=== PATIENT | female | born 1950 | race Caucasian/White ===

== ENCOUNTER 2018-02-04 11:59 | Outpatient (CLI) | payer MEDICARE, OTHER ==
--- NOTE | 2018-02-04 15:41 | MRI ---
MRI BRAIN WITH AND WITHOUT CONTRAST: HISTORY: 67-year-old female with G31.84, mild cognitive impairment. Memory loss. TECHNIQUE: Multiple sequences obtained in axial, sagittal, and coronal planes; pre and post IV injection of gado linium-based contrast agent: 9 mL MultiHance. FINDINGS: The ventricles are normal in size and configuration. There is no major intraaxial signal abnormality , restricted diffusion, abnormal intraaxial enhancement, mass, midline shift or any other mass effect , recent intraaxial hemorrhage, or extraaxial fluid collection. Incidentally, there is hyperostosis f rontalis interna. IMPRESSION: Normal. jn[] POS: [facility]
== END 2018-02-04 12:00 | disposition home or self-care (01) ==
LOC: SCSMRI 11:59
PROVIDERS: ATTEND Psychiatry & Neurology Neurology
DX: G31.84 Mild cognitive impairment of uncertain or unknown etiology (principal)
CPT/HCPCS: 70553; 82565

== ENCOUNTER 2021-11-14 10:00 | Outpatient (CLI) | payer MEDICARE, OTHER | END 2021-11-14 10:01 | disposition home or self-care (01) | LOC: SCSMRI 10:00 | PROVIDERS: ATTEND Orthopaedic Surgery | DX: M17.11 Unilateral primary osteoarthritis, right knee (principal); S83.271A Complex tear of lateral meniscus, current injury, right knee, initial encounter; M71.21 Synovial cyst of popliteal space [Baker], right knee ==

== ENCOUNTER 2021-12-08 10:11 | Outpatient (CLI) | payer MEDICARE, OTHER ==
[2021-12-08 10:59] LABS: #Basophils 0.1 10x3/uL (0.0-0.2); #Eosinphils 0.2 10x3/uL (0.0-0.5); #Monocytes 0.6 10x3/uL (0.0-1.1); #Neutrophils 5.7 10x3/uL (1.5-8.4); %Basophils 0.6 % (0.0-2.0); %Eosinophils 1.7 % (0.0-6.0); %Lymphocytes 36.6 % (18.0-47.0); %Monocytes 5.6 % (0.0-10.0); %Neutrophils 54.9 % (40.0-75.0); Mean Corpuscular HGB CONC 33.6 g/dL (32.0-36.0); Mean Corpuscular Hemoglobin 33.8 pg (27.0-33.0); Mean Corpuscular Volume 100.5 fl (81.6-98.3); Mean Platelet Volume 10.4 fl (7.4-10.4); Platelet Count 187 10x3/uL (150-450); RBC Distribution Width 14.5 % (11.5-14.5); Red Blood Cell (RBC) Count 3.85 10x6/uL (3.90-5.03); White Blood Cell (WBC) Count 10.3 10x3/uL (3.5-10.5)
[2021-12-08 11:10] LABS: Prothrombin Time 10.6 sec (9.5-12.1)
[2021-12-08 11:25] LABS: Anion Gap 17 mmol/L (10-20); Calc. Creatinine Clearance 0 mL/min (70-130); Calcium 10.9 mg/dL (7.8-10.44); Carbon Dioxide 28 mmol/L (23-31); Chloride 100 mmol/L (98-107); Estimated GFR 27; Glucose 165 mg/dL (80-115); Potassium 4.3 mmol/L (3.5-5.1); Sodium 141 mmol/L (136-145)
[2021-12-08 12:07] LABS: BUN (Urea Nitrogen) 29 mg/dL (9.8-20.1)
== END 2021-12-08 10:12 | disposition home or self-care (01) ==
LOC: LABBT 10:11
PROVIDERS: ATTEND Orthopaedic Surgery
DX: Z01.818 Encounter for other preprocedural examination (principal); M17.11 Unilateral primary osteoarthritis, right knee
CPT/HCPCS: 80048; 85025; 85610; 87081; 93005; 93010

== ENCOUNTER 2021-12-13 05:37 | Inpatient (IN) | payer MEDICARE, OTHER ==
[2021-12-12 13:01] VITALS: BMI 36.1
[2021-12-13] MEDS ORDERED: Sodium Chloride 0.9% 100 ML ONE ×2 (05:55→06:56)
[2021-12-13] MEDS ORDERED: Tranexamic Acid 1,000 MG/10 ML VIAL ONE (05:55)
[2021-12-13] MEDS ORDERED: Vancomycin (BATCH) 1.5 GRAM/300 ML BAG ONE (05:55)
[2021-12-13] MEDS ORDERED: fentaNYL Citrate/PF 100 MCG/2 ML SYRINGE ONE (05:59)
[2021-12-13] MEDS ORDERED: Bupivacaine 0.25% HCL 30 ML VIAL ONE (06:21)
[2021-12-13] MEDS ORDERED: EPINEPHrine 1 MG/ML AMP ONE (06:21)
[2021-12-13] MEDS ORDERED: Midazolam HCl 2 mg/2 ml Vial ONE (06:36)
[2021-12-13 06:50] LABS: SARS-CoV-2 NAA Rapid Test Not Detected (NotDetected)
[2021-12-13] MEDS ORDERED: Ropivacaine 0.5% HCl/PF (150 MG/30 ML VIAL) ONE ×2 (06:54→08:34)
[2021-12-13] MEDS ORDERED: PROPOFOL 200 MG/20 ML VIAL ONE (06:54)
[2021-12-13] MEDS ORDERED: Ondansetron PF 4 MG/2 ML Vial ONE (06:54)
[2021-12-13] MEDS ORDERED: CEFAZOLIN 2 GM VIAL ONE (06:56)
[2021-12-13] MEDS ORDERED: Ropivacaine 0.2% 550 ML 550 ML NERVE BLCK SCH (07:45)
[2021-12-13] MEDS ORDERED: traMADol HCl 50 MG TAB PO PRN ×2 (07:45)
[2021-12-13] MEDS ORDERED: Ondansetron PF 4 MG/2 ML Vial IVP PRN ×2 (07:45→08:55)
[2021-12-13] MEDS ORDERED: Fentanyl 100 MCG/2 ML VIAL SLOW IVP PRN (07:45)
[2021-12-13] MEDS ORDERED: HYDROcodone/Acetaminophen 10/325 mg Tablet PO PRN (07:45)
[2021-12-13] MEDS ORDERED: Promethazine HCl 25 MG/ML VIAL IM PRN ×3 (07:45→09:08)
[2021-12-13] MEDS ORDERED: Zolpidem Tartrate 5 MG TAB PO PRN ×2 (07:45→08:55)
[2021-12-13] MEDS ORDERED: Acetaminophen 325 MG TAB PO PRN (08:55)
[2021-12-13] MEDS ORDERED: diphenhydrAMINE 25 MG CAP PO PRN (08:55)
[2021-12-13] MEDS ORDERED: TRULICITY 3 MG SC SCH (09:00)
[2021-12-13] MEDS ORDERED: Promethazine HCl 25 MG/ML VIAL IVPB PRN (09:08)
[2021-12-13] MEDS ORDERED: Ondansetron HCl/PF 4 MG/2 ML Vial IVP PRN (09:08)
[2021-12-13] MEDS: Ketorolac Tromethamine 30 MG/ML VIAL IVP SCH ×3 (10:29→23:22)
[2021-12-13] MEDS: HYDROcodone/Acetaminophen 10/325 mg Tablet PO PRN ×2 (10:30→15:17)
[2021-12-13] MEDS: Aspirin 81 mg Enteric Coated Tablet PO SCH ×2 (10:32→21:03)
[2021-12-13] MEDS: Sodium Chloride 0.9% 1,000 ML IV SCH ×2 (10:52→17:56)
[2021-12-13] MEDS ORDERED: Melatonin 3 MG TAB PO PRN (12:28)
[2021-12-13 13:03] LABS: #Eosinphils 0.2 thou/uL (0.0-0.7); #Lymphocytes 2.3 thou/uL (1.20-3.40); #Monocytes 0.7 thou/uL (0.11-0.59); #Neutrophils 7.9 thou/uL (1.40-6.50); %Basophils 0.1 % (0.0-1.0); %Eosinophils 1.6 % (0.0-10.0); %Lymphocytes 20.9 % (21.0-51.0); %Monocytes 5.9 % (0.0-10.0); %Neutrophils 71.4 % (42.0-75.0); Hemoglobin 12.3 g/dL (12.0-16.0); Mean Corpuscular HGB CONC 32.6 g/dL (32.0-36.0); Mean Corpuscular Hemoglobin 33.7 pg (27.0-31.0); Mean Platelet Volume 8.2 fL (7.4-10.4); Platelet Count 198 thou/uL (130-400); Red Blood Cell (RBC) Count 3.64 mill/uL (4.20-5.40); White Blood Cell (WBC) Count 11.1 thou/uL (4.8-10.8)
[2021-12-13 13:27] LABS: Phosphorus 2.9 mg/dL (2.3-4.7)
[2021-12-13 13:30] LABS: ALT (SGPT) 10 U/L (8-55); AST (SGOT) 9 U/L (5-34); Albumin 3.6 g/dL (3.4-4.8); Alkaline Phosphatase 59 U/L (40-110); Anion Gap 11 mmol/L (10-20); BUN (Urea Nitrogen) 19 mg/dL (9.8-20.1); Bilirubin, Total 0.3 mg/dL (0.2-1.2); Calc. Creatinine Clearance 54 mL/min (70-130); Calcium 8.6 mg/dL (7.8-10.44); Carbon Dioxide 30 mmol/L (23-31); Chloride 107 mmol/L (98-107); Estimated GFR 33; Globulin 2.2 g/dL (2.4-3.5); Glucose 159 mg/dL (80-115); Magnesium 1.3 mg/dL (1.6-2.6); Potassium 4.8 mmol/L (3.5-5.1); Protein, Total 5.8 g/dL (5.8-8.1); Sodium 143 mmol/L (136-145)
[2021-12-13 13:34] LABS: PTT 26.3 sec (22.9-36.1); Prothrombin Time 13.6 sec (12.0-14.7)
[2021-12-13] MEDS ORDERED: Insulin Regular 300 UNITS/3 ML VIAL SC PRN ×2 (14:20)
[2021-12-13] MEDS ORDERED: Dextrose 50% Abboject 50 ML SYRINGE SLOW IVP PRN (14:20)
[2021-12-13] MEDS ORDERED: Dextrose 5% in Water 1,000 ML IV PRN (14:20)
[2021-12-13] MEDS ORDERED: Electrolyte Replacement Protocol 1 EACH FS SCH (14:30)
[2021-12-13] MEDS ORDERED: Magnesium Sulfate In Water 4 GM in Premix Bag 1 BAG IVPB SCH (15:00)
[2021-12-13] MEDS: CEFAZOLIN 2 GM in Sodium Chloride 0.9% 100 ML IVPB SCH ×2 (15:17→23:22)
[2021-12-13] MEDS ORDERED: Oxybutynin ER 5 MG TAB PO SCH (21:00)
[2021-12-13] MEDS: Divalproex Sodium DR 500 MG TAB PO SCH (21:01)
[2021-12-13] MEDS: Atorvastatin Calcium 10 MG TAB PO SCH (21:01)
[2021-12-13] MEDS: cycloSPORINE 0.05% Ophthalmic Droperette EA EYE SCH (21:03)
[2021-12-14] MEDS: Sodium Chloride 0.9% 1,000 ML IV SCH ×2 (05:49→16:27)
[2021-12-14] MEDS: Ketorolac Tromethamine 30 MG/ML VIAL IVP SCH ×3 (05:52→17:24)
[2021-12-14 05:57] LABS: Hemoglobin 10.7 g/dL (12.0-16.0); Mean Corpuscular HGB CONC 33.2 g/dL (32.0-36.0); Mean Corpuscular Hemoglobin 34.9 pg (27.0-31.0); Mean Platelet Volume 7.4 fL (7.4-10.4); Platelet Count 164 thou/uL (130-400); RBC Distribution Width 14.1 % (11.5-14.5); Red Blood Cell (RBC) Count 3.08 mill/uL (4.20-5.40); White Blood Cell (WBC) Count 7.6 thou/uL (4.8-10.8)
[2021-12-14 05:59] LABS: #Eosinphils 0.1 thou/uL (0.0-0.7); #Lymphocytes 2.4 thou/uL (1.20-3.40); #Monocytes 0.6 thou/uL (0.11-0.59); #Neutrophils 4.6 thou/uL (1.40-6.50); %Basophils 0.2 % (0.0-1.0); %Eosinophils 0.9 % (0.0-10.0); %Neutrophils 59.9 % (42.0-75.0)
[2021-12-14 06:58] LABS: Anion Gap 14 mmol/L (10-20); BUN (Urea Nitrogen) 22 mg/dL (9.8-20.1); Calc. Creatinine Clearance 46 mL/min (70-130); Calcium 8.1 mg/dL (7.8-10.44); Carbon Dioxide 24 mmol/L (23-31); Chloride 104 mmol/L (98-107); Estimated GFR 27; Glucose 194 mg/dL (80-115); Potassium 3.9 mmol/L (3.5-5.1); Sodium 138 mmol/L (136-145)
[2021-12-14 07:56] LABS: Magnesium 2.3 mg/dL (1.6-2.6)
[2021-12-14] MEDS: Senokot S 8.6-50 MG TAB PO SCH ×2 (07:56→22:14)
[2021-12-14] MEDS: OLANZapine 5 MG TAB PO SCH (07:57)
[2021-12-14] MEDS: Escitalopram Oxalate 20 mg Tablet PO SCH (07:57)
[2021-12-14] MEDS: Multivitamin W/ Minerals 1 TAB PO SCH (07:57)
[2021-12-14] MEDS: Divalproex Sodium DR 500 MG TAB PO SCH ×2 (07:57→22:20)
[2021-12-14] MEDS: Calcium Carbonate 600 MG + Vit D TAB PO SCH ×2 (07:57→17:24)
[2021-12-14] MEDS: Ferrous Gluconate 324 MG TAB PO SCH ×2 (07:57→17:24)
[2021-12-14] MEDS: Aspirin 81 mg Enteric Coated Tablet PO SCH ×2 (07:58→22:14)
[2021-12-14] MEDS: Cyanocobalamin (Vitamin B-12) 1,000 MCG TAB PO SCH (07:58)
[2021-12-14] MEDS: HYDROcodone/Acetaminophen 10/325 mg Tablet PO PRN ×2 (07:58→11:54)
[2021-12-14] MEDS: buPROPion HCl 100 MG TAB PO SCH (07:58)
[2021-12-14] MEDS: Folic Acid 1 MG TAB PO SCH (07:58)
[2021-12-14] MEDS ORDERED: Losartan 25 MG TAB PO SCH (09:00)
[2021-12-14] MEDS: cycloSPORINE 0.05% Ophthalmic Droperette EA EYE SCH ×2 (11:56→22:15)
[2021-12-14] MEDS ORDERED: Insulin Regular 300 UNITS/3 ML VIAL SC PRN (19:30)
[2021-12-14] MEDS: Atorvastatin Calcium 10 MG TAB PO SCH (22:14)
[2021-12-15] MEDS: Ketorolac Tromethamine 30 MG/ML VIAL IVP SCH ×2 (00:18→05:51)
[2021-12-15] MEDS: Sodium Chloride 0.9% 1,000 ML IV SCH ×2 (02:09→12:38)
[2021-12-15 06:05] LABS: #Eosinphils 0.2 thou/uL (0.0-0.7); #Lymphocytes 4.7 thou/uL (1.20-3.40); #Monocytes 0.7 thou/uL (0.11-0.59); #Neutrophils 4.5 thou/uL (1.40-6.50); %Basophils 0.1 % (0.0-1.0); %Eosinophils 1.5 % (0.0-10.0); %Lymphocytes 46.5 % (21.0-51.0); %Monocytes 7.1 % (0.0-10.0); %Neutrophils 44.8 % (42.0-75.0); Hemoglobin 9.7 g/dL (12.0-16.0); Mean Corpuscular HGB CONC 33.4 g/dL (32.0-36.0); Mean Corpuscular Hemoglobin 34.7 pg (27.0-31.0); Mean Platelet Volume 7.8 fL (7.4-10.4); Platelet Count 181 thou/uL (130-400); RBC Distribution Width 14.1 % (11.5-14.5)
[2021-12-15 06:11] LABS: Hemoglobin 9.8 g/dL (12.0-16.0); Mean Corpuscular HGB CONC 33.6 g/dL (32.0-36.0); Mean Corpuscular Hemoglobin 35.1 pg (27.0-31.0); Mean Platelet Volume 7.9 fL (7.4-10.4); Platelet Count 186 thou/uL (130-400); RBC Distribution Width 14.1 % (11.5-14.5); Red Blood Cell (RBC) Count 2.81 mill/uL (4.20-5.40); White Blood Cell (WBC) Count 9.6 thou/uL (4.8-10.8)
[2021-12-15 06:33] LABS: Anion Gap 11 mmol/L (10-20); BUN (Urea Nitrogen) 25 mg/dL (9.8-20.1); Calc. Creatinine Clearance 50 mL/min (70-130); Calcium 8.4 mg/dL (7.8-10.44); Carbon Dioxide 27 mmol/L (23-31); Chloride 101 mmol/L (98-107); Estimated GFR 30; Glucose 213 mg/dL (80-115); Potassium 3.8 mmol/L (3.5-5.1); Sodium 135 mmol/L (136-145)
[2021-12-15] MEDS: Ferrous Gluconate 324 MG TAB PO SCH ×2 (08:43→16:56)
[2021-12-15] MEDS: OLANZapine 5 MG TAB PO SCH (08:44)
[2021-12-15] MEDS: buPROPion HCl 100 MG TAB PO SCH (08:45)
[2021-12-15] MEDS: Escitalopram Oxalate 20 mg Tablet PO SCH (08:45)
[2021-12-15] MEDS: HYDROcodone/Acetaminophen 10/325 mg Tablet PO PRN ×2 (08:45→14:11)
[2021-12-15] MEDS: Multivitamin W/ Minerals 1 TAB PO SCH (08:46)
[2021-12-15] MEDS: Folic Acid 1 MG TAB PO SCH (08:46)
[2021-12-15] MEDS: Cyanocobalamin (Vitamin B-12) 1,000 MCG TAB PO SCH (08:46)
[2021-12-15] MEDS: Calcium Carbonate 600 MG + Vit D TAB PO SCH ×2 (08:47→16:56)
[2021-12-15] MEDS: Senokot S 8.6-50 MG TAB PO SCH (08:47)
[2021-12-15] MEDS: Aspirin 81 mg Enteric Coated Tablet PO SCH (08:48)
[2021-12-15] MEDS: Divalproex Sodium DR 500 MG TAB PO SCH (08:53)
[2021-12-15] MEDS: cycloSPORINE 0.05% Ophthalmic Droperette EA EYE SCH (08:55)
[2021-12-15] MEDS ORDERED: Ciprofloxacin 500 MG TAB PO SCH ×2 (20:00→21:00)
[2021-12-15 20:57] VITALS: BP 133/75; TEMP 98.5
[2021-12-16] MEDS ORDERED: Saccharomyces boulardii 250 MG CAP PO SCH (12:00)
[2021-12-16] MEDS ORDERED: OLANZapine 5 MG TAB PO SCH (21:00)
== END 2021-12-15 21:20 | DRG 470 ==
LOC: SDC 05:37 → SJJU 10:21 → OBSVTOIN 12-14 07:22
PROVIDERS: ADMIT Orthopaedic Surgery; ATTEND Orthopaedic Surgery
PROC: 0SRC0J9 Replacement of Right Knee Joint with Synthetic Substitute, Cemented, Open Approach (ICD-10-PCS; principal; 2021-12-13)
DX: M17.11 Unilateral primary osteoarthritis, right knee (principal); M93.851 Other specified osteochondropathies, right thigh; E78.5 Hyperlipidemia, unspecified; I12.9 Hypertensive chronic kidney disease with stage 1 through stage 4 chronic kidney disease, or unspecified chronic kidney disease; Z20.822 Contact with and (suspected) exposure to COVID-19; F41.9 Anxiety disorder, unspecified; N18.30 Chronic kidney disease, stage 3 unspecified; E11.22 Type 2 diabetes mellitus with diabetic chronic kidney disease; F31.9 Bipolar disorder, unspecified; Z79.899 Other long term (current) drug therapy; Z90.710 Acquired absence of both cervix and uterus; Z90.722 Acquired absence of ovaries, bilateral
CPT/HCPCS: 36415; 36416; 80048; 80053; 83735; 84100; 85025; 85027; 85610; 85730; 96374; 96375; 96376; A4306; C1713; C1776; G0378; J0171; J1815; J1885; J2250; J2405; J2704; J2795; J3370; J3475; J3490; S0020; U0002

== ENCOUNTER 2022-11-04 09:25 | Inpatient (IN) | payer MEDICARE, OTHER ==
[2022-11-04 10:13] LABS: #Basophils 0.1 thou/uL (0.0-0.2); #Eosinphils 0.1 thou/uL (0.0-0.7); #Monocytes 0.5 thou/uL (0.11-0.59); #Neutrophils 4.9 thou/uL (1.40-6.50); %Basophils 0.4 % (0.0-1.0); %Eosinophils 0.6 % (0.0-10.0); %Monocytes 3.9 % (0.0-10.0); %Neutrophils 35.9 % (42.0-75.0); Hematocrit 38.5 % (36.0-47.0); Hemoglobin 13.3 g/dL (12.0-16.0); Mean Corpuscular HGB CONC 34.5 g/dL (32.0-36.0); Mean Corpuscular Hemoglobin 32.4 pg (27.0-31.0); Mean Corpuscular Volume 93.7 fl (78.0-98.0); Mean Platelet Volume 11.1 fL (7.4-10.4); Platelet Count 345 10x3/uL (130-400); RBC Distribution Width 12.8 % (11.5-14.5); Red Blood Cell (RBC) Count 4.11 mill/uL (4.20-5.40); White Blood Cell (WBC) Count 13.7 10x3/uL (4.8-10.8)
[2022-11-04 10:33] LABS: ALT (SGPT) 15 U/L (8-55); AST (SGOT) 18 U/L (5-34); Albumin 4.3 g/dL (3.4-4.8); Alkaline Phosphatase 101 U/L (40-110); Anion Gap 19 mmol/L (10-20); BUN (Urea Nitrogen) 18 mg/dL (9.8-20.1); Bilirubin, Total 0.8 mg/dL (0.2-1.2); Calc. Creatinine Clearance 0 mL/min (70-130); Calcium 11.1 mg/dL (7.8-10.44); Carbon Dioxide 18 mmol/L (23-31); Chloride 107 mmol/L (98-107); Estimated GFR 34; Globulin 3.1 g/dL (2.4-3.5); Glucose 141 mg/dL (80-115); Lipase 29 U/L (8-78); Potassium 3.7 mmol/L (3.5-5.1); Protein, Total 7.4 g/dL (5.8-8.1); Sodium 140 mmol/L (136-145)
[2022-11-04 11:12] LABS: PTT 28.3 sec (22.9-36.1); Prothrombin Time 13.5 sec (12.0-14.7)
[2022-11-04 13:08] LABS: Bacteria/HPF 4+ HPF (None Seen); Bilirubin Negative (Negative); Blood, Urine Negative (Negative); CAUTI Indications for Culture Dysuria,urgency,freq; Clarity Clear (Clear); Glucose, Urine (Dipstick) Normal (Negative); Ketone, Urine Negative (Negative); Leukocyte 250 Leu/uL (Negative); Nitrite 2+ (Negative); Protein, Urine (Dipstick) 10 mg/dL (Neg-Trace); RBC/HPF 0-3 HPF (0-3); Specific Gravity, Urine 1.022 (1.002-1.036); Squamous Epithelial None Seen HPF (0-3); Urobilinogen Normal mg/dL (Less than 2); WBC/HPF 21-50 HPF (0-3); pH, Urine 5.5 (5.0-9.0)
[2022-11-04 13:16] LABS: Urine Culture Reflex Yes Yes
[2022-11-04 13:23] LABS: Lactic Acid 1.4 mmol/L (0.5-2.2)
[2022-11-04] MEDS ORDERED: cefTRIAXone (ROCEPHIN) 2 GM VIAL ONE (14:41)
[2022-11-04] MEDS ORDERED: Glucagon 1 MG/ML KIT IM PRN (15:52)
[2022-11-04] MEDS ORDERED: Dextrose 5% in Water 1,000 ML IV PRN (15:52)
[2022-11-04] MEDS ORDERED: Dextrose 50% Abboject 50 ML SYRINGE SLOW IVP PRN (15:52)
[2022-11-04] MEDS ORDERED: HumaLOG 300 UNITS/3 ML VIAL SC PRN ×2 (15:52)
[2022-11-04] MEDS ORDERED: Sodium Chloride 0.9% 1,000 ML IV SCH (16:15)
[2022-11-04 18:01] LABS: Phosphorus 2.8 mg/dL (2.3-4.7)
[2022-11-04 18:03] LABS: Magnesium 1.5 mg/dL (1.6-2.6)
[2022-11-04] MEDS: Sodium Chloride 0.9% 1,000 ML IV SCH (18:38)
[2022-11-04 19:32] VITALS: BMI 26.4
[2022-11-04] MEDS: Heparin 5,000 UNITS/ML VIAL SC SCH (20:33)
[2022-11-04] MEDS: Famotidine 20 MG TAB PO SCH (20:33)
[2022-11-05] MEDS: Sodium Chloride 0.9% 1,000 ML IV SCH ×3 (03:10→23:00)
[2022-11-05 07:13] LABS: #Eosinphils 0.1 thou/uL (0.0-0.7); #Monocytes 0.5 thou/uL (0.11-0.59); #Neutrophils 3.9 thou/uL (1.40-6.50); %Basophils 0.4 % (0.0-1.0); %Eosinophils 0.7 % (0.0-10.0); %Monocytes 5.9 % (0.0-10.0); %Neutrophils 45.8 % (42.0-75.0); Hematocrit 32.9 % (36.0-47.0); Hemoglobin 11.1 g/dL (12.0-16.0); Mean Corpuscular HGB CONC 33.7 g/dL (32.0-36.0); Mean Corpuscular Hemoglobin 32.2 pg (27.0-31.0); Mean Corpuscular Volume 95.4 fl (78.0-98.0); Mean Platelet Volume 10.6 fL (7.4-10.4); RBC Distribution Width 12.9 % (11.5-14.5); Red Blood Cell (RBC) Count 3.45 mill/uL (4.20-5.40); White Blood Cell (WBC) Count 8.4 10x3/uL (4.8-10.8)
[2022-11-05 07:31] LABS: Platelet Count 210 10x3/uL (130-400)
[2022-11-05 08:08] LABS: ALT (SGPT) 12 U/L (8-55); AST (SGOT) 14 U/L (5-34); Albumin 3.6 g/dL (3.4-4.8); Alkaline Phosphatase 79 U/L (40-110); Anion Gap 11 mmol/L (10-20); BUN (Urea Nitrogen) 18 mg/dL (9.8-20.1); Bilirubin, Total 0.6 mg/dL (0.2-1.2); Calc. Creatinine Clearance 43 mL/min (70-130); Calcium 9.9 mg/dL (7.8-10.44); Carbon Dioxide 22 mmol/L (23-31); Chloride 111 mmol/L (98-107); Estimated GFR 37; Globulin 2.5 g/dL (2.4-3.5); Glucose 140 mg/dL (80-115); Potassium 3.4 mmol/L (3.5-5.1); Protein, Total 6.1 g/dL (5.8-8.1); Sodium 141 mmol/L (136-145)
[2022-11-05] MEDS: Heparin 5,000 UNITS/ML VIAL SC SCH ×3 (10:51→22:00)
[2022-11-05] MEDS: cefTRIAXone\\ROCEPHIN 1 GM in Sodium Chloride 0.9% 100 ML IVPB SCH (15:12)
[2022-11-05] MEDS ORDERED: Potassium Chloride 20 MEQ TAB PO SCH (15:30)
[2022-11-05] MEDS: Metoprolol Tartrate 25 MG TAB PO SCH (21:58)
[2022-11-05] MEDS: Famotidine 20 MG TAB PO SCH (21:58)
[2022-11-05] MEDS: Atorvastatin Calcium 10 MG TAB PO SCH (21:58)
[2022-11-06] MEDS: Sodium Chloride 0.9% 1,000 ML IV SCH ×2 (08:39→18:28)
[2022-11-06] MEDS: Heparin 5,000 UNITS/ML VIAL SC SCH ×3 (08:43→19:58)
[2022-11-06] MEDS ORDERED: Ondansetron PF 4 MG/2 ML Vial IVP PRN (09:10)
[2022-11-06] MEDS: Metoprolol Tartrate 25 MG TAB PO SCH ×2 (09:56→19:58)
[2022-11-06] MEDS: Losartan 25 MG TAB PO SCH (09:56)
[2022-11-06] MEDS: Escitalopram Oxalate 20 mg Tablet PO SCH (09:56)
[2022-11-06] MEDS: cefTRIAXone\\ROCEPHIN 1 GM in Sodium Chloride 0.9% 100 ML IVPB SCH (14:30)
[2022-11-06] MEDS: Atorvastatin Calcium 10 MG TAB PO SCH (19:58)
[2022-11-06] MEDS: Famotidine 20 MG TAB PO SCH (19:58)
[2022-11-06] MEDS ORDERED: Melatonin 3 MG TAB PO SCH (21:15)
[2022-11-07] MEDS: Sodium Chloride 0.9% 1,000 ML IV SCH (03:38)
[2022-11-07 08:26] VITALS: TEMP 98.3
[2022-11-07] MEDS: Losartan 25 MG TAB PO SCH (09:36)
[2022-11-07] MEDS: Escitalopram Oxalate 20 mg Tablet PO SCH (09:36)
[2022-11-07] MEDS: Metoprolol Tartrate 25 MG TAB PO SCH (09:36)
[2022-11-07] MEDS: Heparin 5,000 UNITS/ML VIAL SC SCH (09:37)
[2022-11-07 13:04] VITALS: BP 163/81
[2022-11-07] MEDS ORDERED: Loperamide HCl 2 MG CAP PO SCH (13:15)
== END 2022-11-07 14:13 | disposition home health service (06) | DRG 872 ==
LOC: ERS 09:25 → OBSVTOIN 15:27 → T4-B 15:27
PROVIDERS: ADMIT Internal Medicine; ATTEND Internal Medicine
DX: A41.9 Sepsis, unspecified organism (principal); N17.9 Acute kidney failure, unspecified; N30.00 Acute cystitis without hematuria; K21.9 Gastro-esophageal reflux disease without esophagitis; E78.00 Pure hypercholesterolemia, unspecified; F31.9 Bipolar disorder, unspecified; Z96.651 Presence of right artificial knee joint; E11.22 Type 2 diabetes mellitus with diabetic chronic kidney disease; I12.9 Hypertensive chronic kidney disease with stage 1 through stage 4 chronic kidney disease, or unspecified chronic kidney disease; R19.7 Diarrhea, unspecified; E83.52 Hypercalcemia; N18.31 Chronic kidney disease, stage 3a; Z90.710 Acquired absence of both cervix and uterus; Z98.890 Other specified postprocedural states; Z79.899 Other long term (current) drug therapy; Z79.82 Long term (current) use of aspirin
CPT/HCPCS: 36415; 36416; 51701; 70450; 71045; 74176; 80053; 81001; 83605; 83690; 83735; 84100; 84145; 85025; 85610; 85730; 87040; 87077; 87086; 87186; 93005; 93306; 96365; 96366; J0696; J1644; J2405; J3490; J7050